=== PATIENT | male | born 1960 | race Caucasian/White ===

== ENCOUNTER 2019-03-18 11:29 | Emergency (ER) | payer OTHER ==
[~2019-03-18] VITALS: Ht 177.8 cm; Wt 115.7 kg
[~2019-03-18 11:29] MED LIST: FLEXERIL PO; PERCOCET 5-3251 EACH PO
[2019-03-18 12:04] LABS: ABSOLUTE BASOPHILS 0.1 thou/uL (0.0-0.2); ABSOLUTE LYMPHOCYTES 2.2 thou/uL (0.8-5.3); ABSOLUTE MONOCYTES 1.2 thou/uL (0.0-1.2); ABSOLUTE NEUTROPHILS 9.1 thou/uL (1.6-8.1); BASOPHILS 0.8 %; EOSINOPHILS 0.4 %; HEMATOCRIT 43.4 % (42.0-52.0); HEMOGLOBIN 14.8 gm/dL (14.0-18.0); LYMPHOCYTES 17.4 %; MCH 28.4 pg (26.0-34.0); MCHC 34.1 g/dL (28.0-37.0); MCV 83.4 fL (80.0-100.0); MONOCYTES 9.3 %; MPV 7.4 fl. (7.2-11.1); NUCLEATED RBCS 0 /100WBC; PLATELET COUNT* 277 thou/uL (150-400); POLYS 72.1 %; RDW-CV 14.6 % (10.5-14.5); WBC 12.6 thou/uL (4.0-11.0)
[2019-03-18 12:17] LABS: CALCIUM 8.5 mg/dL (8.5-10.1); CREATININE 1.3 mg/dL (0.6-1.3); POTASSIUM 4.1 mmol/L (3.5-5.1)
[2019-03-18 12:21] LABS: ALBUMIN 4.1 g/dL (3.4-5.0); TOTAL BILIRUBIN 1.1 mg/dL (<0.1-1.0); TOTAL PROTEIN 8.4 g/dL (6.4-8.2)
[2019-03-18] MEDS ORDERED: TYLENOL WITH CO1 TA1 PO (13:39)
[2019-03-18] MEDS ORDERED: ONDANSETRON ODT4 MG PO (13:39)
[2019-03-18] MEDS ORDERED: PEPCID20 MG PO (13:39)
[2019-03-18] MEDS ORDERED: OMEPRAZOLE 20 M20 M1 PO (13:39)
[2019-03-18 14:12] LABS: URINE BILIRUBIN NEGATIVE (Negative); URINE BLOOD NEGATIVE (Negative); URINE CLARITY CLEAR; URINE COLOR YELLOW; URINE GLUCOSE-RANDOM NEGATIVE (Negative); URINE KETONES NEGATIVE (Negative); URINE LEUKOCYTES-REFLEX NEGATIVE (Negative); URINE NITRITE-REFLEX NEGATIVE (Negative); URINE PROTEIN NEGATIVE (Negative); URINE SPECIFIC GRAVITY <= 1.005 (1.005-1.030); URINE UROBILINOGEN 0.2 E.U./dl (0.2-1.0)
[2019-03-18 14:31] VITALS: BP 122/71
--- NOTE | 2019-03-19 10:57 | EKG ---
[place] [address] ELECTROCARDIOGRAM REPORT Name: JERROD SOLIS Room: [facility]#: [id number] Admission: 03/18/19 Attend Phys: Discharge: 03/18/19 Date of : 64 Report #: [id number] THIS REPORT FOR: //name// [facility] ED Test Date: 2019-03-18 Test Time: 12:00:16 Pat Name: JERROD SOLIS Department: Room: Gender: M [employer]: SAUL : 1960 Requested By: Shabbir German Order Number: [id number] MD: Gus Hamilton Measurements Intervals [place] Rate: 102 P: 41 WA: 139 QRS: -80 QRSD: 107 T: 45 QT: 357 QTc: 466 Interpretive Statements Sinus tachycardia LAD, consider LAFB or inferior infarct Abnormal R-wave progression, late transition ST elevation, consider anterior injury No previous ECG available for comparison Electronically Signed On 03-19-2019 10:57:04 [employer] by Gus Hamilton [email or web address] <ELECTRONICALLY SIGNED> By: Gus Hamilton MD, [facility] 03/19/19 1057 1200 1200 Gus Hamilton MD, FAC /EPI
== END 2019-03-18 14:32 | disposition home or self-care (01) ==
LOC: M.ERS 11:29
PROVIDERS: Physician Assistant
DX: R10.13 Epigastric pain (principal); R10.11 Right upper quadrant pain; R11.2 Nausea with vomiting, unspecified